=== PATIENT | male | born 1995 | race Caucasian/White ===

== ENCOUNTER 2018-02-22 21:09 | Emergency (ER) | payer OTHER ==
--- NOTE | 2018-02-22 21:27 | ED Physician Documentation ---
PD HPI DYSPNEA - Stated complaint Stated Complaint: SOA X5 DAYS - Chief complaint Chief Complaint: Resp - History obtained from History obtained from: Patient - History of Present Illness Timing - onset: How many days ago (5) Timing - details: Gradual onset, Waxing and waning Pain level max: 0 Pain level now: 0 Improved by: Other (no ameliorating factors) Worsened by: Other (some exertional component but not definitively so) Associated symptoms: No: Fever, Cough, Hemoptysis, Wheezing, Chest pain / discomfort, Palpitations, Diaphoresis, Bilateral edema, Unilateral edema Similar symptoms before: Has not had sx before Recently seen: Clinic ([facility] 3 days ago) - Additional information Additional information: c/o 5 days of dyspnea, both on exertion as well as at rest . No h/o similar symptoms. Evaluated at [facility] 3 days ago, no tests performed, rx visatril and singular but no improvement. Review of Systems Constitutional: denies: Fever, Chills, Sweats Ears: denies: Ear pain Nose: denies: Congestion, Sinus pressure / pain Throat: denies: Sore throat Cardiac: reports: Reviewed and negative Respiratory: reports: Dyspnea. denies: Cough, Hemoptysis, Wheezing Musculoskeletal: denies: Extremity swelling PD PAST MEDICAL HISTORY - Past Medical History Past Medical History: No Cardiovascular: None Respiratory: None Endocrine/Autoimmune: Type 1 diabetes GI: None : None HEENT: None Musculoskeletal: None Derm: None - Past Surgical History Past Surgical History: No - Present Medications Home Medications: Ambulatory Orders Medication Instructions Recorded Confirmed Sertraline [Zoloft] 25 mg PO DAILY #14 tablet 05/08/16 Sertraline [Zoloft] 50 mg PO DAILY #14 tablet 05/08/16 - Allergies Allergies/Adverse Reactions: Allergies Allergy/AdvReac Type Severity Reaction Status Date / Time No Known Drug Allergies Allergy Verified 06/19/16 06:47 - Social History Does the pt smoke?: No Smoking Status: Never smoker Does the pt drink ETOH?: No Does the pt have substance abuse?: No - Immunizations Immunizations are current?: Yes - POLST Patient has POLST: No PD ED PE NORMAL - Vitals Vital signs reviewed: Yes - General General: Alert and oriented X 3, No acute distress, Well developed/nourished - Cardiac Cardiac: RRR, No murmur, No gallop, No rub - Respiratory Respiratory: No respiratory distress, Clear bilaterally Results - Vitals Vitals: Vital Signs - 24 hr 02/22/18 02/22/18 02/22/18 21:12 21:48 22:44 Temperature 36.5 C Heart Rate 95 92 86 Respiratory 16 16 Rate Blood Pressure 140/75 H 126/80 O2 Saturation 99 95 Oxygen O2 Source Room air - Labs Labs: Laboratory Tests 02/22/18 22:15 WBC 9.4 RBC 5.06 Hgb 14.8 Hct 42.1 MCV 83.1 MCH 29.2 MCHC 35.1 RDW 13.9 Plt Count 266 MPV 6.7 L Neut # 6.3 Lymph # 2.1 [facility] # 0.8 Eos # 0.2 Baso # 0.1 Absolute Nucleated RBC 0.00 Nucleated RBC % 0.0 - Rads (name of study) chest xray Radiology: Prelim report reviewed, See rad report PD MEDICAL DECISION MAKING - ED course Complexity details: reviewed results, re-evaluated patient, considered differential, d/w patient Departure - Departure Disposition: 01 Home, Self Care Clinical Impression: Dyspnea Condition: Good Instructions: ED Dyspnea Shortness of Breath Follow-Up: REBECCA RYAN DO [Primary Care Provider] - (2-3 days if symptoms persist) Discharge Date/Time: 02/22/18 22:44
--- NOTE | 2018-02-22 22:03 | XRAY Report ---
EXAM: CHEST RADIOGRAPHY EXAM DATE: 02/22/2018 09:48 PM. CLINICAL HISTORY: Dyspnea. COMPARISON: None. TECHNIQUE: 2 views. FINDINGS: Lungs/Pleura: Normal volumes. No focal consolidation or evidence of edema. No pleural effusion or pne umothorax. Mediastinum: Normal cardiomediastinal contour. Other: The bones are normal. IMPRESSION: Normal 2-view chest radiography. [facility] Referring Provider Line: [phone] SITE ID: [id number]
[2018-02-22 22:22] LABS: BASOPHILS # (AUTO) 0.1 10^3/uL (0.0-0.1); BASOPHILS % (AUTO) 0.8 %; EOSINOPHILS # (AUTO) 0.2 10^3/uL (0.0-0.7); EOSINOPHILS % (AUTO) 1.8 %; HGB - HEMOGLOBIN 14.8 g/dL (14.0-18.0); LYMPHOCYTES # (AUTO) 2.1 10^3/uL (1.5-3.5); LYMPHOCYTES % (AUTO) 21.9 %; MEAN CORPUSCULAR HEMOGLOBIN 29.2 pg (27.0-31.0); MEAN CORPUSCULAR HGB CONC 35.1 g/dL (32.0-36.0); MEAN CORPUSCULAR VOLUME 83.1 fL (80.0-94.0); MEAN PLATELET VOLUME 6.7 fL (7.4-11.4); MONOCYTES # (AUTO) 0.8 10^3/uL (0.0-1.0); MONOCYTES % (AUTO) 8.7 %; NEUTROPHILS # (AUTO) 6.3 10^3/uL (1.5-6.6); NEUTROPHILS % (AUTO) 66.8 %; PLT - PLATELET COUNT 266 10^3/uL (130-450); RED BLOOD COUNT 5.06 10^6/uL (4.70-6.10); RED CELL DISTRIBUTION WIDTH 13.9 % (12.0-15.0); WHITE BLOOD COUNT 9.4 x10^3/uL (4.8-10.8)
[2018-02-22 22:45] VITALS: BP 126/80
== END 2018-02-22 22:44 | disposition home or self-care (01) ==
LOC: ED 21:09
DX: R06.00 Dyspnea, unspecified (principal); E10.9 Type 1 diabetes mellitus without complications
CPT/HCPCS: 36415; 71046; 85025; 99283

== ENCOUNTER 2019-02-03 08:41 | Outpatient (CLI) | payer OTHER ==
[2019-02-03] MEDS ORDERED: GADOBUTROL 7.5 MMOL/7.5 ML VIAL ONE (10:11)
[2019-02-03] MEDS ORDERED: GADOBUTROL 7.5 MMOL/7.5 ML VIAL IVP ONE (10:57)
--- NOTE | 2019-02-03 13:35 | MRI Report ---
Reason: HEADACHE,OTHER AMNESIA Procedure Date: 02/03/2019 Accession Number: [id number] / [id number] Procedure: MRI - Brain W/O CPT Code: FULL RESULT: EXAM: MRI BRAIN WITHOUT CONTRAST EXAM DATE: 02/03/2019 10:00 AM. CLINICAL HISTORY: 23-year-old man with headaches and forgetfulness. COMPARISON: None. TECHNIQUE: Multiplanar, multisequence T1-weighted and fluid-sensitive MR sequences of the brain were performed. Sequences optimized for routine evaluation. Other: None. IV Contrast: None. FINDINGS: Parenchyma: No evidence of acute infarct on diffusion weighted sequence. Parenchyma demonstrates normal signal intensity on T1- and T2-weighted sequences. No evidence of hemorrhage. Pituitary: Normal in size. Ventricles and Extra-axial Spaces: Ventricles are symmetric and normal in size for age. Extra-axial spaces are unremarkable. No evidence of Chiari malformation. Orbits: Unremarkable. Sinuses: Paranasal sinuses and mastoid air cells are clear. Major Vascular Flow Voids: Intact. IMPRESSION: 1. Normal brain MRI. No evidence of infarct, hemorrhage, or mass lesion. [facility]
--- NOTE | 2019-02-03 13:43 | MRI Report ---
Reason: HEADACHE,OTHER AMNESIA Procedure Date: 02/03/2019 Accession Number: [id number] / [id number] Procedure: MRI - Cervical Spine W/WO CPT Code: FULL RESULT: EXAM: MRI CERVICAL SPINE WITHOUT AND WITH CONTRAST EXAM DATE: 02/03/2019 09:45 AM. CLINICAL HISTORY: 23-year-old man with headaches, neck pain, and forgetfulness. COMPARISON: None. TECHNIQUE: Multiplanar, multisequence T1-weighted and fluid-sensitive sequences of the cervical spine before and after administration of intravenous contrast. Other: None. IV contrast: 7 cc Gadavist. FINDINGS: Neurologic Structures: Cervical spinal cord is normal in caliber without signal abnormality. No abnormal enhancement. Alignment: No scoliosis or spondylolisthesis. Bone Marrow: No gross fractures or bone lesions. No marrow edema or abnormal enhancement. Interspace Levels/Facets: C2-C3: Unremarkable. C3-C4: Unremarkable. C4-C5: Unremarkable. C5-C6: Unremarkable. C6-C7: Unremarkable. C7-T1: Unremarkable. Spinal Canal: No enhancing lesions within the spinal canal. No epidural abscess. Musculature: Normal. No edema, enhancement, or fatty atrophy. Other: The paravertebral and prevertebral soft tissues are normal. IMPRESSION: 1. Normal MRI of the cervical spine. No significant degenerative changes. Central canal and neural foramen are widely patent. [facility]
== END 2019-02-03 08:42 | disposition home or self-care (01) ==
LOC: DI 08:41
PROVIDERS: ATTEND Family Medicine
DX: R51 Headache (principal); R41.3 Other amnesia
CPT/HCPCS: 70551; 72156; A9585